=== PATIENT | female | born 1990 | race African-American/Black ===

== ENCOUNTER 2022-11-10 07:34 | Emergency (ER) | payer MEDICAID, OTHER ==
[~2022-11-10] VITALS: Ht 165.1 cm; Wt 82.0 kg
[~2022-11-10 07:34] MED LIST: CLARITIN
[2022-11-10 07:37] VITALS: BP 121/73
[2022-11-10] MEDS ORDERED: CEFTRIAXONE SODIUM 500 MG/VIAL IM ONE (08:45)
[2022-11-10] MEDS ORDERED: LIDOCAINE HCL 1% 20ML VIAL (Pyxis) INJ INFIL ONE (08:45)
[2022-11-10 08:57] LABS: CLARITY URINE CLOUDY (CLEAR); COLOR URINE YELLOW (YELLOW); KETONES URINE TRACE (NEGATIVE); LEUKOCYTE ESTERASE URINE 1+ (NEGATIVE); NITRITE URINE NEGATIVE (NEGATIVE); OCCULT BLOOD URINE NEGATIVE (NEGATIVE); PROTEIN URINE TRACE (NEGATIVE); SPECIFIC GRAVITY URINE 1.028 (1.005-1.030)
[2022-11-10] MEDS ORDERED: DOXY100C5 MT (08:58)
[2022-11-10] MEDS ORDERED: DIF15 MT (08:58)
== END 2022-11-10 09:20 | disposition home or self-care (01) ==
LOC: ER 07:34
DX: A64 Unspecified sexually transmitted disease (principal); N39.0 Urinary tract infection, site not specified; N89.8 Other specified noninflammatory disorders of vagina
CPT/HCPCS: 81003; 81025; 87210; 96372; 99283; J0696